=== PATIENT | female | born 1990 | race Caucasian/White ===

== ENCOUNTER 2018-12-30 16:31 | Observation (INO) ==
[2018-12-30] MEDS ORDERED: NIFEdipine 10 MG CAPSULE PO ONE (16:45)
[2018-12-30 16:53] VITALS: BP 124/76
--- NOTE | 2018-12-30 19:51 | HP ---
Chief Complaint - Chief Complaint Date of Service: 12/30/18 Time of Service: 19:34 Chief Complaint: contractions History of Present Illness: 28 yo at 31 weeks presents to L&D complaining contractions q1-3 min around 4-5/10 in pain since around 1000am today. They have persisted despite rest, fluid hydration, and warm bath. Patient denies vaginal bleeding, LOF, trauma, decreased FM, recent coitus, or excess activity. Patient states these feel similar to the ones she had the day before but are more painful. This complicated by ADHD, hyperemesis, GDM - diet controlled, prior c/s, pancreatic disorder, anxiety, h/o preeclampsia, chronic hematuria from renal dysfunction, and threatened labor. Rh positive Rubella immune GBS unknown Medical History (Updated 12/29/18 @ 16:58 by Wai Steele DO) History of pre-eclampsia (Inactive) Hyperemesis gravidarum with dehydration (Inactive) Attention deficit hyperactivity disorder (Chronic) Generalized anxiety disorder (Chronic) Gestational diabetes Onset Date: 12/07/18 Morning sickness ADD (attention deficit disorder) Onset Date: ~2014 Anxiety Onset Date: 04/19/14 Migraine aura, persistent Onset Date: 09/29/12 PCOS (polycystic ovarian syndrome) Onset Date: 09/29/12 Pancreatic divisum Acne Onset Date: Unknown Anemia Onset Date: ~2015 with Biliary tract disorder Onset Date: Unknown Heart murmur Onset Date: ~2014 Major depression (Resolved) Ovarian cyst Onset Date: ~2001 Pancreatic disorder Onset Date: ~2013 Pre-eclampsia Onset Date: 03/22/16 [place] teeth extracted Onset Date: ~2010 Surgical History: Surgical History (Updated 12/29/18 @ 16:58 by Wai Steele DO) Previous section (Inactive) Bleeding as complication of pancreatic-biliary sphincterotomy Onset Date: ~05/2017 H/O section Onset Date: 03/22/16 primary - breech position H/O laparoscopy Onset Date: ~2001 pod cleaned out - still has ovaries History of cholecystectomy Onset Date: 11/03/12 Hx of appendectomy Onset Date: ~2001 Family History: Family History (Updated 07/23/18 @ 13:27 by Frieda Calvillo RN) Father Hyperlipemia Grandfather , maternal Alzheimers disease Grandfather , paternal Myocardial infarction Grandmother CVA (cerebral vascular accident) maternal Diabetes Mother Hypertension Sister Asthma PCOS (polycystic ovarian syndrome) Uncle Diabetes type 1 Social History: (Last Reviewed 12/30/18 @ 19:38 by Wai Steele DO) Social History: Marital status: household members: spouse, children current occupational status: employed 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 Highest education level completed: Bachelor's degree Service: No Tobacco: Smoking Status: Never smoker Alcohol: alcohol intake: former alcohol intake frequency: a few times a month Substance Use: substance use type: does not use Dietary Habits: caffeine: Yes caffeine comment: 1-2 daily Type: carbonated beverages Exercise: Physical activity type: none Review Of Systems (GEN) - Review of Systems Generalized/Overall Review: Present: No Symptoms Reported EENTM: Present: No Symptoms Reported Respiratory: Present: No Symptoms Reported Cardiac: Present: No Symptoms Reported Abdominal: Present: Other - contractions Genitourinary: Present: No Symptoms Reported Musculoskeletal: Present: No Symptoms Reported Neurological: Present: No Symptoms Reported Skin: Present: No Symptoms Reported Endocrine: Present: No Symptoms Reported Immunizations: IMMUNIZATION HX Immunizations Up to Date Yes History of Influenza Vaccine Yes Hx Pneumococcal Vaccination No Allergies/Adverse Reactions: Allergies Allergy/AdvReac Type Severity Reaction Status Date / Time Sulfa (Sulfonamide Allergy Severe Hives Verified 12/28/18 16:30 Antibiotics) Home Medications: HOME MEDICATIONS rizatriptan 10 mg tablet 10 mg PO Q2H PRN 12/11/17 [Last Taken Unknown] lisdexamfetamine 40 mg capsule 40 mg PO DAILY #90 cap 09/10/18 [Last Taken Unknown] metoclopramide 10 mg tablet 10 mg PO Q6H #30 tab 09/22/18 [Last Taken Unknown] promethazine 25 mg rectal suppository 25 mg UT Q6H PRN #12 ea 09/22/18 [Last Taken Unknown] ondansetron 4 mg disintegrating tablet 4 mg PO Q8H #21 tab 10/07/18 [Last Taken Unknown] aspirin 81 mg tablet,delayed release 81 mg PO DAILY 10/27/18 [Last Taken 12/28/18] pyridoxine (vitamin B6) 25 mg tablet 25 mg PO DAILY 10/27/18 [Last Taken 12/28/18] ferrous sulfate 325 mg (65 mg iron) tablet 325 mg PO DAILY #30 tab 12/03/18 [Last Taken Unknown] acetone (urine) test strips See Dose Instructions .ROUTE .MEDSUPPLY #100 ea 12/07/18 [Last Taken Unknown] blood sugar diagnostic strips See Dose Instructions .ROUTE .MEDSUPPLY #100 ea 12/07/18 [Last Taken Unknown] blood-glucose meter kit See Dose Instructions .ROUTE .MEDSUPPLY #1 ea 12/07/18 [Last Taken Unknown] lancets 28 gauge See Dose Instructions .ROUTE .MEDSUPPLY #200 ea 12/07/18 [Last Taken Unknown] sertraline 100 mg tablet 150 mg PO DAILY #135 tab 12/21/18 [Last Taken 12/28/18] Cfq185/FA/Omega3/Dha/Fish Oil [ Gummies] 2 ea PO DAILY 12/28/18 [Last Taken 12/27/18] Exam - Exam Vital Signs: Vital Signs - Last Taken Temp 36.4 C 12/30/18 16:40 Pulse 91 12/30/18 16:53 Resp 18 12/30/18 16:40 BP 124/76 12/30/18 16:53 Pulse Ox 98 12/30/18 16:40 Constitutional: Present: Alert, Oriented x3, Cooperative, No distress ENT Exam: Present: hearing grossly normal Breasts: Present: Exam deferred Respiratory: Present: lungs clear, no respiratory distress Cardiovascular/Chest: Present: normal peripheral pulses, regular rate, rhythm, no edema Abdomen: Present: soft, nontender, no rebound tenderness, other - gravid /Rectal: Present: Other - cervix essentially unchanged from 12/29/18 - /-3. Extremity: Present: no pedal edema, no calf tenderness Skin Exam: Present: normal color, warm/dry, no cyanosis Lymphatic: Present: no adenopathy Neurologic: Present: alert, normal mood/affect, oriented x 3 Appearance: Present: appropriate appearance, appropriate insight Eye contact: Present: cooperative, good eye contact Thoughts: Present: normal thought pattern Diagnostic Studies: NST reactive. FHT 150 with moderate variability, occasional deceleration with some late appearing, good accelerations. Contractions q1-2 min, lasting 30 sec and palpate mild. Assessment/Plan - Assessment/Plan (1) Threatened labor Assessment: Due to a few questionable late decelerations, frequent contractions, and history of prior c/s, will keep patient overnight on monitor to reassure no developing abruption or uterine rupture. Will get T&S, CBC, keep NPO, and start IV fluids Problem: Acute Qualifiers: Trimester: third trimester (2) Pancreatic abnormality Problem: Chronic (3) Previous section Problem: Inactive (4) History of pre-eclampsia Problem: Inactive (5) Hyperemesis gravidarum with dehydration Problem: Inactive (6) Attention deficit hyperactivity disorder Problem: Chronic Qualifiers: Attention deficit-hyperactivity disorder type: predominantly inattentive (7) Generalized anxiety disorder Problem: Chronic
[2018-12-30] MEDS: DEXTROSE 5%-LACTATED RINGERS 1,000 ML IV PRN (20:02)
[2018-12-30 20:12] LABS: Hematocrit 29.4 % (37.0-47.0); Hemoglobin 10.2 gm/dL (12.5-16.0); Mean Cell Volume 86.5 fl (78-100); Mean Corpuscular Hgb Conc 34.7 g/dl (32-36); Mean Platelet Volume 9.6 fl (8-12.5); Neutrophil # 6.9 K/mm3 (1.3-6.0); Platelet Count 183 K/mm3 (150-450); Red Cell Distribution Width 12.6 % (11.5-14.0); White Blood Count 9.5 K/mm3 (4.0-10.5)
[2018-12-31] MEDS: DEXTROSE 5%-LACTATED RINGERS 1,000 ML IV PRN (03:19)
[2018-12-31] MEDS ORDERED: FERROUS SULFATE 325 MG TABLET PO SCH (09:00)
[2018-12-31] MEDS ORDERED: SERTRALINE HCL 100 MG TABLET PO SCH (09:00)
[2018-12-31] MEDS ORDERED: NON-FORMULARY 1 DOSE DOSE (Ferrous Sulfate [Iron] 325 MG) PO SCH (09:00)
[2018-12-31] MEDS ORDERED: [UNRECOGNIZED DRUG - OTHER] PO SCH (09:00)
[2018-12-31] MEDS ORDERED: ASPIRIN 81 MG TABLET.DR PO SCH (09:00)
[2018-12-31] MEDS ORDERED: [UNRECOGNIZED DRUG - OTHER] PO SCH (09:00)
[2018-12-31] MEDS ORDERED: DHA PO SCH ×2 (09:00)
[2018-12-31] MEDS ORDERED: SERTRALINE HCL 50 MG TABLET PO SCH (09:00)
[2018-12-31] MEDS ORDERED: OMEGA3 PO SCH ×2 (09:00)
[2018-12-31] MEDS ORDERED: FISH OIL PO SCH ×2 (09:00)
--- NOTE | 2018-12-31 10:12 | PN ---
Subjective - Date and Time Seen Date: 12/31/18 Time: 07:55 Subjective Narrative: Patient denies any pain, vaginal bleeding, LOF. C/o feeling an occasional contraction and only very mild. Objective - Review of Systems Generalized/Overall Review: Reports: No Symptoms Reported EENTM: Reports: No Symptoms Reported Respiratory: Reports: No Symptoms Reported Cardiac: Reports: No Symptoms Reported Abdominal: Reports: No Symptoms Reported Genitourinary Symptoms: Reports: No Symptoms Reported Musculoskeletal Complaints: Reports: No Symptoms Reported Neurological: Reports: No Symptoms Reported Skin: Reports: No Symptoms Reported - Vitals Vitals: Last Vital Signs Temp 36.4 C 12/30/18 16:40 Pulse 91 12/30/18 16:53 Resp 18 12/30/18 16:40 BP 124/76 12/30/18 16:53 Pulse Ox 98 12/30/18 16:40 - Abnormal Lab Findings Abnormal Lab Findings: Abnormal Lab Results 12/30/18 Range/Units 20:05 RBC 3.40 L (4.2-5.4) M/mm3 Hgb 10.2 L (12.5-16.0) gm/dL Hct 29.4 L (37.0-47.0) % Immature Gran % (Auto) 1.30 H (0.001-0.429) % Immature Gran # (Auto) 0.12 H (0.000-0.0310) K/mm3 Lymphocytes % 18.9 L (20-51) % Neutrophils # 6.9 H (1.3-6.0) K/mm3 NST reactive. tracing throughout the night has been reassuring with no further late decelerations and only an occasional mild variable deceleration. - Exam Constitutional: Present: Alert, Oriented x3, Cooperative, No distress ENT Exam: Present: hearing grossly normal Breasts: Present: Exam deferred Respiratory: Present: no respiratory distress Cardiovascular/Chest: Present: regular rate, rhythm, no edema Abdomen: Present: soft, nontender, no rebound tenderness, other - gravid /Rectal: Present: Exam deferred Extremity: Present: no pedal edema, no calf tenderness Skin Exam: Present: normal color, warm/dry, no cyanosis Neurologic: Present: alert, normal mood/affect, oriented x 3 Appearance: Present: appropriate appearance, appropriate insight Eye contact: Present: cooperative, good eye contact Thoughts: Present: normal thought pattern Assessment/Plan - Problems/Diagnosis (1) Threatened labor Problem: Resolved Qualifiers: Trimester: third trimester Narrative: D/c to home with PTL precautions, no sex or nipple stimulation till 36 wks. Avoid excess exercise/activity - ok to do normal ADL and light exercise. F/u in office in 1 week. (2) Pancreatic abnormality Problem: Chronic (3) Previous section Problem: Inactive (4) History of pre-eclampsia Problem: Inactive (5) Hyperemesis gravidarum with dehydration Problem: Inactive (6) Attention deficit hyperactivity disorder Problem: Chronic Qualifiers: Attention deficit-hyperactivity disorder type: predominantly inattentive (7) Generalized anxiety disorder Problem: Chronic
--- NOTE | 2018-12-31 10:20 | DS ---
(1) Threatened labor Problem: Resolved Qualifiers: Trimester: third trimester Qualified Code(s): O47.03 - False labor before 37 completed weeks of gestation, third trimester (2) Pancreatic abnormality Problem: Chronic (3) Previous section Problem: Inactive (4) History of pre-eclampsia Problem: Inactive (5) Hyperemesis gravidarum with dehydration Problem: Inactive (6) Attention deficit hyperactivity disorder Problem: Chronic Qualifiers: Attention deficit-hyperactivity disorder type: predominantly inattentive Qualified Code(s): F90.0 - Attention-deficit hyperactivity disorder, predominantly inattentive type (7) Generalized anxiety disorder Problem: Chronic Date of Discharge:: 12/31/18 Description of Stay: Patient admitted for observation due to 2nd occurrence of threatened labor within 2 days and a few late decelerations noted on tracing. Contractions resolved and no late decelerations were noted since admission. Procedures Performed: see notes below List Procedures: monitoring, NST, IV fluids, lab work. Results and Findings: Lab Pending Results 12/30/18 20:05: WBC 9.5, RBC 3.40 L, Hgb 10.2 L, Hct 29.4 L, MCV 86.5, MCH 30.0, MCHC 34.7, RDW 12.6, Plt Count 183, MPV 9.6, Immature Gran % (Auto) 1.30 H, Immature Gran # (Auto) 0.12 H, Neutrophils % 73.0, Lymphocytes % 18.9 L, Monocytes % 6.0, Eosinophils % 0.6, Basophils % 0.2, Nucleated RBC % 0.0, Neutrophils # 6.9 H, Lymphocytes # 1.79, Monocytes # 0.6, Eosinophils # 0.1, Absolute Basophils 0.0 12/30/18 20:05: Blood Type B Positive, Antibody Screen Negative Discharge Location: Home Disposition: Home self-care Condition: Good Face to Face Encounter completed per CMS Guidelines: Yes Discharge Activity: Activity as tolerated Discharge Diet: General/regular food Complete Home Medications List: Complete Home Medication List: rizatriptan 10 mg tablet 10 mg PO Q2H PRN 12/11/17 lisdexamfetamine 40 mg capsule 40 mg PO DAILY #90 cap 09/10/18 metoclopramide 10 mg tablet 10 mg PO Q6H #30 tab 09/22/18 promethazine 25 mg rectal suppository 25 mg RI Q6H PRN #12 ea 09/22/18 ondansetron 4 mg disintegrating tablet 4 mg PO Q8H #21 tab 10/07/18 aspirin 81 mg tablet,delayed release 81 mg PO DAILY 10/27/18 pyridoxine (vitamin B6) 25 mg tablet 25 mg PO DAILY 10/27/18 ferrous sulfate 325 mg (65 mg iron) tablet 325 mg PO DAILY #30 tab 12/03/18 acetone (urine) test strips See Dose Instructions .ROUTE .MEDSUPPLY #100 ea 12/07/18 blood sugar diagnostic strips See Dose Instructions .ROUTE .MEDSUPPLY #100 ea 12/07/18 blood-glucose meter kit See Dose Instructions .ROUTE .MEDSUPPLY #1 ea 12/07/18 lancets 28 gauge See Dose Instructions .ROUTE .MEDSUPPLY #200 ea 12/07/18 sertraline 100 mg tablet 150 mg PO DAILY #135 tab 12/21/18 Ckh574/FA/Omega3/Dha/Fish Oil [ Gummies] 2 ea PO DAILY 12/28/18
== END 2018-12-31 09:15 | disposition home or self-care (01) ==
LOC: OB 16:31 → OBCLINIC 16:31
PROVIDERS: ADMIT Obstetrics & Gynecology; ATTEND Obstetrics & Gynecology
CPT/HCPCS: 36415; 59025; 76816; 85025; 86850; 96360; 96361; G0378

== ENCOUNTER 2018-12-31 16:21 | Observation (INO) ==
[2018-12-31] MEDS ORDERED: BUTORPHANOL TARTRATE 2 MG/ML VIAL IV PRN ×2 (16:47→17:15)
[2018-12-31 17:01] LABS: Hematocrit 30.9 % (37.0-47.0); Hemoglobin 10.6 gm/dL (12.5-16.0); Mean Cell Volume 88.8 fl (78-100); Mean Corpuscular Hemoglobin 30.5 pg (27-31); Mean Corpuscular Hgb Conc 34.3 g/dl (32-36); Mean Platelet Volume 9.9 fl (8-12.5); Neutrophil # 5.6 K/mm3 (1.3-6.0); Neutrophil % 67.9 % (42-75.0); Platelet Count 196 K/mm3 (150-450); Red Blood Count 3.48 M/mm3 (4.2-5.4); Red Cell Distribution Width 12.8 % (11.5-14.0); White Blood Count 8.2 K/mm3 (4.0-10.5)
[2018-12-31 17:18] LABS: Albumin * 2.7 gm/dl (3.4-5.0); Anion Gap 15.3 mmol/L (6.8-13.8); BUN/Creatinine Ratio 10.6 (9.0-21.6); Bilirubin, Total 0.3 mg/dL (0.0-1.1); Ca. Corrected For Albumin 9.6 mg/dL (8.4-10.2); Calcium * 8.9 mg/dL (7.9-10.9); Carbon Dioxide 23.5 mmol/L (24-32.6); Potassium 3.8 mmol/L (3.4-4.6); Total Protein 5.6 gm/dL (6.2-8.2)
[2018-12-31 17:19] LABS: Urine Bilirubin Negative (NEGATIVE); Urine Blood 25 /ul (NEGATIVE); Urine Ketone Negative (NEGATIVE); Urine Nitrite Negative (NEGATIVE); Urine Protein Negative (NEGATIVE); Urine Specific Gravity 1.015 SP.GR. (1.005-1.010); Urine Urobilinogen Normal (NORMAL); Urine pH 7.5 pH (5.0-7.0)
[2018-12-31 17:28] LABS: Urine Appearance Cloudy (CLEAR); Urine Bacteria 1+; Urine Color Yellow; Urine RBC 0-5 /hpf (0-5)
[2018-12-31 17:29] LABS: Urine Amorphous Sediment Moderate - 2+ (NONE-FEW)
[2018-12-31] MEDS ORDERED: RINGER'S SOLUTION,LACTATED 1,000 ML IV ONE (17:34)
[2018-12-31] MEDS: HYDROmorphone HCL 1 MG/ML DISP.SYRIN IV PRN ×2 (17:45→22:20)
[2018-12-31] MEDS: ceFAZolin SODIUM/DEXTROSE,ISO 2 GM/50 ML BAG IV SCH (17:51)
[2018-12-31] MEDS ORDERED: MORPHINE SULFATE 4 MG/ML SYRG IV ONE (18:13)
[2018-12-31] MEDS: RINGER'S SOLUTION,LACTATED 1,000 ML IV ONE (18:35)
[2018-12-31] MEDS: MORPHINE SULFATE 2 MG/ML DISP.SYRIN IV PRN ×4 (20:15→22:51)
--- NOTE | 2018-12-31 20:42 | HP ---
Chief Complaint - Chief Complaint Date of Service: 12/31/18 Time of Service: 20:17 Chief Complaint: left flank pain History of Present Illness: The patient is a 28 year old @ 31w 1d who presented to labor and delivery with severe left flank pain. She denies ctx, vb or lof. Fetus is active. Medical History (Updated 12/31/18 @ 12:25 by Wai Steele DO) History of pre-eclampsia (Inactive) Hyperemesis gravidarum with dehydration (Inactive) Attention deficit hyperactivity disorder (Chronic) Generalized anxiety disorder (Chronic) Gestational diabetes Onset Date: 12/07/18 Morning sickness ADD (attention deficit disorder) Onset Date: ~2014 Anxiety Onset Date: 04/19/14 Migraine aura, persistent Onset Date: 09/29/12 PCOS (polycystic ovarian syndrome) Onset Date: 09/29/12 Pancreatic divisum Acne Onset Date: Unknown Anemia Onset Date: ~2015 with Biliary tract disorder Onset Date: Unknown Heart murmur Onset Date: ~2014 Major depression (Resolved) Ovarian cyst Onset Date: ~2001 Pancreatic disorder Onset Date: ~2013 Pre-eclampsia Onset Date: 03/22/16 [place] teeth extracted Onset Date: ~2010 Surgical History: Surgical History (Updated 12/29/18 @ 16:58 by Wai Steele DO) Previous section (Inactive) Bleeding as complication of pancreatic-biliary sphincterotomy Onset Date: ~05/2017 H/O section Onset Date: 03/22/16 primary - breech position H/O laparoscopy Onset Date: ~2001 pod cleaned out - still has ovaries History of cholecystectomy Onset Date: 11/03/12 Hx of appendectomy Onset Date: ~2001 Family History: Family History (Updated 07/23/18 @ 13:27 by Frieda Calvillo RN) Father Hyperlipemia Grandfather , maternal Alzheimers disease Grandfather , paternal Myocardial infarction Grandmother CVA (cerebral vascular accident) maternal Diabetes Mother Hypertension Sister Asthma PCOS (polycystic ovarian syndrome) Uncle Diabetes type 1 Social History: (Last Reviewed 12/31/18 @ 20:36 by May Whyte MD) Social History: Marital status: household members: spouse, children current occupational status: employed current occupation: [employer] Highest education level completed: Bachelor's degree Service: No Tobacco: Smoking Status: Never smoker Alcohol: alcohol intake: former alcohol intake frequency: a few times a month Substance Use: substance use type: does not use Dietary Habits: caffeine: Yes caffeine comment: 1-2 daily Type: carbonated beverages Exercise: Physical activity type: none Review Of Systems (GEN) - Review of Systems Generalized/Overall Review: Present: No Symptoms Reported Genitourinary: Present: Hematuria Musculoskeletal: Present: Back Pain Misc: All systems neg except as marked - left flank pain Immunizations: IMMUNIZATION HX Immunizations Up to Date Yes History of Influenza Vaccine Yes Hx Pneumococcal Vaccination No Allergies/Adverse Reactions: Allergies Allergy/AdvReac Type Severity Reaction Status Date / Time Sulfa (Sulfonamide Allergy Severe Hives Verified 12/28/18 16:30 Antibiotics) Home Medications: HOME MEDICATIONS rizatriptan 10 mg tablet 10 mg PO Q2H PRN 12/11/17 [Last Taken Unknown] lisdexamfetamine 40 mg capsule 40 mg PO DAILY #90 cap 09/10/18 [Last Taken Unknown] metoclopramide 10 mg tablet 10 mg PO Q6H #30 tab 09/22/18 [Last Taken Unknown] promethazine 25 mg rectal suppository 25 mg MA Q6H PRN #12 ea 09/22/18 [Last Taken Unknown] ondansetron 4 mg disintegrating tablet 4 mg PO Q8H #21 tab 10/07/18 [Last Taken Unknown] aspirin 81 mg tablet,delayed release 81 mg PO DAILY 10/27/18 [Last Taken 12/28/18] pyridoxine (vitamin B6) 25 mg tablet 25 mg PO DAILY 10/27/18 [Last Taken 12/28/18] ferrous sulfate 325 mg (65 mg iron) tablet 325 mg PO DAILY #30 tab 12/03/18 [Last Taken Unknown] acetone (urine) test strips See Dose Instructions .ROUTE .MEDSUPPLY #100 ea 12/07/18 [Last Taken Unknown] blood sugar diagnostic strips See Dose Instructions .ROUTE .MEDSUPPLY #100 ea 12/07/18 [Last Taken Unknown] blood-glucose meter kit See Dose Instructions .ROUTE .MEDSUPPLY #1 ea 12/07/18 [Last Taken Unknown] lancets 28 gauge See Dose Instructions .ROUTE .MEDSUPPLY #200 ea 12/07/18 [Last Taken Unknown] sertraline 100 mg tablet 150 mg PO DAILY #135 tab 12/21/18 [Last Taken 12/28/18] [id number]/FA/Omega3/Dha/Fish Oil [ Gummies] 2 ea PO DAILY 12/28/18 [Last Taken 12/27/18] Exam - Exam Constitutional: Present: Alert, Oriented x3, Cooperative, No distress Back Exam: Present: normal inspection, CVA tenderness (L) Respiratory: Present: lungs clear, normal breath sounds Cardiovascular/Chest: Present: regular rate, rhythm, no murmur Abdomen: Present: soft, nontender, nondistended Extremity: Present: non-tender, no calf tenderness Skin Exam: Present: normal color, warm/dry, no cyanosis Appearance: Present: appropriate appearance Eye contact: Present: cooperative Thoughts: Present: normal thought pattern Diagnostic Studies: Abnormal Lab Results 12/31/18 12/31/18 12/31/18 Range/Units 17:00 17:00 17:10 RBC 3.48 L (4.2-5.4) M/mm3 Hgb 10.6 L (12.5-16.0) gm/dL Hct 30.9 L (37.0-47.0) % Immature Gran % (Auto) 1.50 H (0.001-0.429) % Immature Gran # (Auto) 0.12 H (0.000-0.0310) K/mm3 Sodium 143 H (132-142) mmol/L Plasma Sodium 143 H (130-142) mmol/L Chloride 108 H (97-106) mmol/L Carbon Dioxide 23.5 L (24-32.6) mmol/L Anion Gap 15.3 H (6.8-13.8) mmol/L ALT 7 L (19-67) U/L Total Protein 5.6 L (6.2-8.2) gm/dL Albumin 2.7 L (3.4-5.0) gm/dl Urine Blood 25 H (NEGATIVE) /ul Ur Leukocyte Esterase 100 H (NEGATIVE) /ul Urine WBC 5-10 H (0-5) /hpf Ur Epithelial Cells 5-10 H (0-5) /hpf Amorphous Sediment Moderate - 2+ H (NONE-FEW) Urine Bacteria 1+ H (NONE) Urine Comment Culture ordered L Laboratory Results WBC 8.2 K/mm3 (4.0-10.5) 12/31/18 17:00 RBC 3.48 M/mm3 (4.2-5.4) L 12/31/18 17:00 Hgb 10.6 gm/dL (12.5-16.0) L 12/31/18 17:00 Hct 30.9 % (37.0-47.0) L 12/31/18 17:00 MCV 88.8 fl (78-100) 12/31/18 17:00 MCH 30.5 pg (27-31) 12/31/18 17:00 MCHC 34.3 g/dl (32-36) 12/31/18 17:00 RDW 12.8 % (11.5-14.0) 12/31/18 17:00 Plt Count 196 K/mm3 (150-450) 12/31/18 17:00 MPV 9.9 fl (8-12.5) 12/31/18 17:00 Immature Gran % (Auto) 1.50 % (0.001-0.429) H 12/31/18 17:00 Immature Gran # (Auto) 0.12 K/mm3 (0.000-0.0310) H 12/31/18 17:00 67.9 % (42-75.0) 12/31/18 17:00 21.5 % (20-51) 12/31/18 17:00 8.4 % (0.0-9) 12/31/18 17:00 0.5 % (0.0-3.0) 12/31/18 17:00 0.2 % (0.0-1.0) 12/31/18 17:00 Nucleated RBC % 0.0 k/mm3 (0-1) 12/31/18 17:00 5.6 K/mm3 (1.3-6.0) 12/31/18 17:00 1.77 k/mm3 (1.5-3.5) 12/31/18 17:00 0.7 k/mm3 (0.0-1.0) 12/31/18 17:00 0.0 k/mm3 (0.0-0.7) 12/31/18 17:00 Absolute Basophils 0.0 k/mm3 (0.0-0.1) 12/31/18 17:00 Sodium 143 mmol/L (132-142) H 12/31/18 17:00 143 mmol/L (130-142) H 12/31/18 17:00 Potassium 3.8 mmol/L (3.4-4.6) 12/31/18 17:00 Chloride 108 mmol/L (97-106) H 12/31/18 17:00 Carbon Dioxide 23.5 mmol/L (24-32.6) L 12/31/18 17:00 15.3 mmol/L (6.8-13.8) H 12/31/18 17:00 BUN 7 mg/dL (3-23) 12/31/18 17:00 0.66 mg/dL (0.4-1.4) 12/31/18 17:00 Est GFR (Non-Af Amer) 112 mL/min (60-130) 12/31/18 17:00 10.6 (9.0-21.6) 12/31/18 17:00 95 mg/dL (70-110) 12/31/18 17:00 Calcium 8.9 mg/dL (7.9-10.9) 12/31/18 17:00 Calcium Adj for Albumin 9.6 mg/dL (8.4-10.2) 12/31/18 17:00 0.3 mg/dL (0.0-1.1) 12/31/18 17:00 AST 18 U/L (0-48) 12/31/18 17:00 ALT 7 U/L (19-67) L 12/31/18 17:00 83 U/L (50-170) 12/31/18 17:00 5.6 gm/dL (6.2-8.2) L 12/31/18 17:00 2.7 gm/dl (3.4-5.0) L 12/31/18 17:00 Amylase 47 U/L (25-115) 12/31/18 17:00 147 U/L (73-393) 12/31/18 17:00 Yellow 12/31/18 17:10 Cloudy (CLEAR) 12/31/18 17:10 7.5 pH (5.0-7.0) 12/31/18 17:10 Ur Specific [place] 1.015 SP.GR. (1.005-1.010) 12/31/18 17:10 Negative mg/dL (NEGATIVE) 12/31/18 17:10 Negative mg/dL (NEGATIVE) 12/31/18 17:10 Negative mg/dL (NEGATIVE) 12/31/18 17:10 25 /ul (NEGATIVE) H 12/31/18 17:10 Negative (NEGATIVE) 12/31/18 17:10 Negative mg/dl (NEGATIVE) 12/31/18 17:10 Normal EU/dl (NORMAL) 12/31/18 17:10 Ur Leukocyte Esterase 100 /ul (NEGATIVE) H 12/31/18 17:10 0-5 /hpf (0-5) 12/31/18 17:10 5-10 /hpf (0-5) H 12/31/18 17:10 Ur Epithelial Cells 5-10 /hpf (0-5) H 12/31/18 17:10 Amorphous Sediment Moderate - 2+ (NONE-FEW) H 12/31/18 17:10 1+ (NONE) H 12/31/18 17:10 Urine Comment Culture ordered L 12/31/18 17:10 Assessment/Plan - Narrative Narrative: 28 year old @ 31w 1d 1. Left ureteral stone: pain control overnight, continue Ancef overnight, discussed with Dr. Sahni who will speak to Dr. Jesus and one of them will place a ureteral stent tomorrow. Patient NPO after midnight. Patient may have dinner 2. IUP @ 31w 1d: cat 1 tracing. Stop monitoring given non-obstetrical problem Plan of care discussed with the patient and her spouse
[2019-01-01] MEDS: HYDROmorphone HCL 1 MG/ML DISP.SYRIN IV PRN ×4 (01:00→07:15)
[2019-01-01] MEDS: MORPHINE SULFATE 2 MG/ML DISP.SYRIN IV PRN ×7 (01:15→08:02)
[2019-01-01] MEDS: RINGER'S SOLUTION,LACTATED 1,000 ML IV ONE (01:18)
[2019-01-01] MEDS: ceFAZolin SODIUM/DEXTROSE,ISO 2 GM/50 ML BAG IV SCH ×3 (01:41→18:02)
[2019-01-01] MEDS ORDERED: MORPHINE SULFATE 50 MG CARTRIDGE IV PRN (07:36)
[2019-01-01] MEDS ORDERED: diphenhydrAMINE HCL 50 MG/ML VIAL IV PRN (07:36)
[2019-01-01] MEDS ORDERED: NALOXONE HCL 1 MG/1 ML SYRG IV PRN (07:36)
--- NOTE | 2019-01-01 07:40 | PN ---
Subjective - Date and Time Seen Date: 01/01/19 Time: 07:37 Subjective Narrative: Patient without complaints Objective Objective Narrative: See vital signs - Review of Systems Generalized/Overall Review: Reports: No Symptoms Reported Musculoskeletal Complaints: Reports: Back Pain Misc: All systems neg except as marked - Vitals Vitals: Last Vital Signs Temp 36.4 C 01/01/19 07:21 Pulse 84 01/01/19 07:21 Resp 14 01/01/19 07:21 BP 98/56 01/01/19 07:21 Pulse Ox 99 01/01/19 07:21 - Abnormal Lab Findings Abnormal Lab Findings: Abnormal Lab Results 12/31/18 12/31/18 12/31/18 Range/Units 17:00 17:00 17:10 RBC 3.48 L (4.2-5.4) M/mm3 Hgb 10.6 L (12.5-16.0) gm/dL Hct 30.9 L (37.0-47.0) % Immature Gran % (Auto) 1.50 H (0.001-0.429) % Immature Gran # (Auto) 0.12 H (0.000-0.0310) K/mm3 Sodium 143 H (132-142) mmol/L Plasma Sodium 143 H (130-142) mmol/L Chloride 108 H (97-106) mmol/L Carbon Dioxide 23.5 L (24-32.6) mmol/L Anion Gap 15.3 H (6.8-13.8) mmol/L ALT 7 L (19-67) U/L Total Protein 5.6 L (6.2-8.2) gm/dL Albumin 2.7 L (3.4-5.0) gm/dl Urine Blood 25 H (NEGATIVE) /ul Ur Leukocyte Esterase 100 H (NEGATIVE) /ul Urine WBC 5-10 H (0-5) /hpf Ur Epithelial Cells 5-10 H (0-5) /hpf Amorphous Sediment Moderate - 2+ H (NONE-FEW) Urine Bacteria 1+ H (NONE) Urine Comment Culture ordered L - Exam Constitutional: Present: Alert, Oriented x3, Cooperative, No distress Abdomen: Present: soft, nontender, nondistended Extremity: Present: non-tender, no calf tenderness Skin Exam: Present: normal color, warm/dry, no cyanosis Appearance: Present: appropriate appearance Eye contact: Present: cooperative Thoughts: Present: normal thought pattern Assessment/Plan Plan Narrative: 28 yo @ 31w 2d Awaiting urological consult for ureteral calculus Morphine RN MANAGED CARE for pain control
[2019-01-01] MEDS: RINGER'S SOLUTION,LACTATED 1,000 ML IV PRN ×2 (08:00→14:40)
[2019-01-01] MEDS ORDERED: NORMAL SALINE IV PRN ×2 (08:18→08:30)
[2019-01-01] MEDS ORDERED: MORPHINE SULFATE IV PRN ×2 (08:18→08:30)
[2019-01-01] MEDS ORDERED: TAMSULOSIN HCL 0.4 MG CAP.SR.24H PO ONE (12:06)
--- NOTE | 2019-01-01 13:09 | ANES ---
Anesthesia Pre Procedure Eval Vitals/Labs: Last Vital Signs Temp 36.4 C 01/01/19 07:21 Pulse 84 01/01/19 07:21 Resp 14 01/01/19 07:21 BP 98/56 01/01/19 07:21 Pulse Ox 99 01/01/19 07:21 HOME MEDICATIONS rizatriptan 10 mg tablet 10 mg PO Q2H PRN 12/11/17 [Last Taken Unknown] lisdexamfetamine 40 mg capsule 40 mg PO DAILY #90 cap 09/10/18 [Last Taken Unknown] metoclopramide 10 mg tablet 10 mg PO Q6H #30 tab 09/22/18 [Last Taken Unknown] promethazine 25 mg rectal suppository 25 mg HI Q6H PRN #12 ea 09/22/18 [Last Taken Unknown] ondansetron 4 mg disintegrating tablet 4 mg PO Q8H #21 tab 10/07/18 [Last Taken Unknown] aspirin 81 mg tablet,delayed release 81 mg PO DAILY 10/27/18 [Last Taken 12/28/18] pyridoxine (vitamin B6) 25 mg tablet 25 mg PO DAILY 10/27/18 [Last Taken 12/28/18] ferrous sulfate 325 mg (65 mg iron) tablet 325 mg PO DAILY #30 tab 12/03/18 [Last Taken Unknown] acetone (urine) test strips See Dose Instructions .ROUTE .MEDSUPPLY #100 ea 12/07/18 [Last Taken Unknown] blood sugar diagnostic strips See Dose Instructions .ROUTE .MEDSUPPLY #100 ea 12/07/18 [Last Taken Unknown] blood-glucose meter kit See Dose Instructions .ROUTE .MEDSUPPLY #1 ea 12/07/18 [Last Taken Unknown] lancets 28 gauge See Dose Instructions .ROUTE .MEDSUPPLY #200 ea 12/07/18 [Last Taken Unknown] sertraline 100 mg tablet 150 mg PO DAILY #135 tab 12/21/18 [Last Taken 12/28/18] [id number]/FA/Omega3/Dha/Fish Oil [ Gummies] 2 ea PO DAILY 12/28/18 [Last Taken 12/27/18] Allergies/Adverse Reactions: Allergies Allergy/AdvReac Type Severity Reaction Status Date / Time Sulfa (Sulfonamide Allergy Severe Hives Verified 12/31/18 22:27 Antibiotics) - Planned Procedure Planned Procedure: kidney stone Medication List Reviewed:: Yes Allergies Verified: Yes Medical History (Updated 12/31/18 @ 12:25 by Wai Steele DO) History of pre-eclampsia (Inactive) Hyperemesis gravidarum with dehydration (Inactive) Attention deficit hyperactivity disorder (Chronic) Generalized anxiety disorder (Chronic) Gestational diabetes Onset Date: 12/07/18 Morning sickness ADD (attention deficit disorder) Onset Date: ~2014 Anxiety Onset Date: 04/19/14 Migraine aura, persistent Onset Date: 09/29/12 PCOS (polycystic ovarian syndrome) Onset Date: 09/29/12 Pancreatic divisum Acne Onset Date: Unknown Anemia Onset Date: ~2015 with Biliary tract disorder Onset Date: Unknown Heart murmur Onset Date: ~2014 Major depression (Resolved) Ovarian cyst Onset Date: ~2001 Pancreatic disorder Onset Date: ~2013 Pre-eclampsia Onset Date: 03/22/16 [place] teeth extracted Onset Date: ~2010 Surgical History (Updated 12/29/18 @ 16:58 by Wai Steele DO) Previous section (Inactive) Bleeding as complication of pancreatic-biliary sphincterotomy Onset Date: ~05/2017 H/O section Onset Date: 03/22/16 primary - breech position H/O laparoscopy Onset Date: ~2001 pod cleaned out - still has ovaries History of cholecystectomy Onset Date: 11/03/12 Hx of appendectomy Onset Date: ~2001 Family History (Updated 07/23/18 @ 13:27 by Frieda Calvillo RN) Father Hyperlipemia Grandfather , maternal Alzheimers disease Grandfather , paternal Myocardial infarction Grandmother CVA (cerebral vascular accident) maternal Diabetes Mother Hypertension Sister Asthma PCOS (polycystic ovarian syndrome) Uncle Diabetes type 1 - Family Anesthesia History Family History:: no untoward family reactions to anesthesia, no familial bleeding tendencies, no family history of clotting disorders, no family history of premature - Airway/Neck/Teeth Within Normal Limits:: Yes Teeth Condition: intact Neck Exam: full range of motion Mallampatti Score: 1 Thyromental (T-M) distance: > 6 cm Mandibulo Hyoid distance: > 3 cm - Respiratory Respiratory Physical: lungs clear Smoking Status: Never smoker Sleep Apnea currently treated: No Sleep Apnea by current assessment: No - Cardiovascular Tolerate Activity: Good Heart Sounds: S1 & S2, Regular - Anesthesia Assessment and Plan ASA Class: PS, II, E Anesthesia Type Plan: General ET
--- NOTE | 2019-01-01 13:37 | CONS ---
[facility] - General Date of Service: 01/01/19 Narrative: 28-year-old female admitted yesterday for left abdominal and flank pain. She is currently 31 weeks . This is her second child. Earlier this week she began having some contractions but overall the baby was doing well. However yesterday she developed severe left abdominal pain radiating to her left flank. Also has had some nausea. A renal ultrasound was done and I reviewed the report and images. She has bilateral pelviectasis. There is reported possible calcifications in both kidneys. A right ureteral jet was seen. However no left ureteral jet was identified. Her urine contained a few white cells but also squamous cells. White blood cell count was normal. She has not had any fevers. I reviewed his CT scan she had done in [facility] in 2017. She had multiple bilateral stones at that time. In the left kidney she had a 5 mm and a 4 mm stone. Her pain has been pretty severe overnight requiring a VP. It is a little bit better currently. Her urine has been strained and no stone seen. Family hx: no hx of stones reported Social hx: nonsmoker - History of Present Illness Timing/Duration: 24 hours Severity: severe Modifying Factors - (Worsens): Reports: medication Allergies/Adverse Reactions: Allergies Sulfa (Sulfonamide Antibiotics) Allergy (Severe, Verified 12/31/18 22:27) Hives Home Medications: Home Medications Medication Instructions Recorded Last Taken rizatriptan 10 mg tablet 10 mg PO Q2H PRN 12/11/17 Unknown lisdexamfetamine 40 mg capsule 40 mg PO DAILY #90 cap 09/10/18 Unknown metoclopramide 10 mg tablet 10 mg PO Q6H #30 tab 09/22/18 Unknown promethazine 25 mg rectal 25 mg SD Q6H PRN #12 ea 09/22/18 Unknown suppository ondansetron 4 mg disintegrating 4 mg PO Q8H #21 tab 10/07/18 Unknown tablet aspirin 81 mg tablet,delayed 81 mg PO DAILY 10/27/18 12/28/18 release pyridoxine (vitamin B6) 25 mg 25 mg PO DAILY 10/27/18 12/28/18 tablet ferrous sulfate 325 mg (65 mg 325 mg PO DAILY #30 tab 12/03/18 Unknown iron) tablet acetone (urine) test strips See Dose Instructions .ROUTE 12/07/18 Unknown .MEDSUPPLY #100 ea blood sugar diagnostic strips See Dose Instructions .ROUTE 12/07/18 Unknown .MEDSUPPLY #100 ea blood-glucose meter kit See Dose Instructions .ROUTE 12/07/18 Unknown .MEDSUPPLY #1 ea lancets 28 gauge See Dose Instructions .ROUTE 12/07/18 Unknown .MEDSUPPLY #200 ea sertraline 100 mg tablet 150 mg PO DAILY #135 tab 12/21/18 12/28/18 Yqu116/FA/Omega3/Dha/Fish Oil 2 ea PO DAILY 12/28/18 12/27/18 [ Gummies] Procedures Extraction of Products of Conception, Low Cervical, Open Approach (03/22/16) Immobilization of Right Hand using Splint (02/03/15) Monitoring of Products of Conception, Cardiac Rate, External Approach (03/22/16) Medications - Medications Current Medications: Current Medications Butorphanol Tartrate (Stadol) 2 mg IV ONCE PRN PRN Reason: Pain Stop: 01/30/19 16:48 Last Admin: 12/31/18 17:06 Dose: 2 mg Documented by: Cefazolin Sodium/Dextrose (Ancef) 2 gm in 50 mls @ 100 mls/hr IV Q8H [facility]; Protocol Stop: 01/30/19 17:46 Last Infusion: 01/01/19 10:45 Dose: Infused Documented by: Lactated Ringer's (Lactated Ringers) 1,000 mls @ 150 mls/hr IV .Q6H40M PRN PRN Reason: HYDRATION Stop: 01/31/19 03:09 Last Admin: 01/01/19 08:00 Dose: 150 mls/hr Documented by: Morphine Sulfate 50 mg/ Sodium (Chloride) 50 mls @ 0 mls/hr IV PRN PRN; Protocol PRN Reason: SEVERE PAIN Stop: 01/31/19 08:25 Last Admin: 01/01/19 09:00 Dose: 0.1 mls/hr Documented by: Review of Systems - Review of Systems Generalized/Overall Review: Present: No Symptoms Reported EENTM: Present: No Symptoms Reported Respiratory: Present: No Symptoms Reported Cardiac: Present: No Symptoms Reported Abdominal: Present: Nausea Genitourinary: Present: No Symptoms Reported Musculoskeletal: Present: Back Pain Neurological: Present: No Symptoms Reported Skin: Present: No Symptoms Reported Endocrine: Present: No Symptoms Reported Physical Examination - Exam Vital Signs: Vital Signs - Last Taken Temp 97.5 F 01/01/19 07:21 Pulse 84 01/01/19 07:21 Resp 14 01/01/19 07:21 BP 98/56 01/01/19 07:21 Pulse Ox 99 01/01/19 07:21 O2 Oxygen Delivery Method Room Air Constitutional: Present: Alert, Oriented x3 ENT Exam: Present: hearing grossly normal Respiratory: Present: lungs clear, normal breath sounds Cardiovascular/Chest: Present: normal peripheral pulses Abdomen: Present: soft, nontender, other /Rectal: Present: External genitalia normal Extremity: Present: normal range of motion Skin Exam: Present: normal color, warm/dry Appearance: Present: appropriate appearance Eye contact: Present: cooperative, good eye contact Thoughts: Present: normal thought pattern - Results and Findings: Narrative: Patient likely has an obstructing left ureteral stone. Based on past CT scan she had pretty sizable stones previously. I discussed options of continued trial of passage versus placing a left ureteral stent. Patient has had such severe pain she wants to place a stent. I think that this is reasonable given the size of stones previously seen on CT scan. We do not know the current location or size of the stones but the only way to assess that would be to do a CT scan. We would rather try to avoid a CT scan if at all possible due to the radiation. After discussion patient wishes to proceed with cystoscopy and stent placement in the left kidney. My plan will be to leave the stent in for 2 weeks and then go back in and treat any stone visible with ureteroscopy and laser lithotripsy. Patient understands that there is a risk for miscarriage, infection and injury to the ureter. However there is risks to the baby if continued pain medication. Plus she has been miserable over the last 24 hours. She wishes to proceed Lab/Microbiology results last 24 hrs: Abnormal/Pending Laboratory Last 24 HRS 12/31/18 12/31/18 12/31/18 17:10 17:00 17:00 RBC 3.48 L Hgb 10.6 L Hct 30.9 L Immature Gran % (Auto) 1.50 H Immature Gran # (Auto) 0.12 H Sodium 143 H Plasma Sodium 143 H Chloride 108 H Carbon Dioxide 23.5 L Anion Gap 15.3 H ALT 7 L Total Protein 5.6 L Albumin 2.7 L Urine Blood 25 H Ur Leukocyte Esterase 100 H Urine WBC 5-10 H Ur Epithelial Cells 5-10 H Amorphous Sediment Moderate - 2+ H Urine Bacteria 1+ H Urine Comment Culture ordered L Culture 12/31/18 17:10 Urine Culture - Preliminary Urine,Clean Catch No Growth
--- NOTE | 2019-01-01 15:10 | OR ---
Operative Report - Dictated Report Narrative: Procedure performed: Cystoscopy with left ureteral stent insertion Preop diagnosis: Left hydronephrosis Postop: Same, likely left ureteral stone Anesthesia: Spinal Findings: She appeared to have left ureteral obstruction about midway up the ureter based on feel Specimen: Urine culture Description of the procedure: Patient was properly identified and consented. She was brought to the operating room and spinal anesthesia induced. Prepped and draped in the dorsolithotomy position. Timeout was performed. Rigid cystoscope was passed into the bladder. Bladder without stones or lesions. No significant debris. She had single ureters bilaterally. Using a 5 [place] c atheter and a Solo wire I cannulated the left ureter. Fluoroscopy was not working and thus I performed a stent by feel. About midway up the ureter there was some obstruction felt. With gentle pressure I was able to navigate the wire but I feel past this obstruction. It seemed to pass smoothly once he got by this point. A 5 [place] catheter was removed leaving the wire in place. Over the wire a 6 x 24 double-J stent was easily advanced. The wire was removed. I visualize a coil within the bladder. There was what appeared to be slightly cloudy urine draining out of the stent. Washing for the bladder was obtained directed at the end of the stent. The bladder was drained. Patient tolerated well
[2019-01-01] MEDS ORDERED: HYDROcodone/ACETAMINOPHEN 1 EACH TABLET PO PRN (15:25)
--- NOTE | 2019-01-01 15:34 | ANES ---
Post Anesthesia Assessment - Vital Signs Vitals: Last Vital Signs Temp 36.8 C 01/01/19 15:30 Pulse 96 01/01/19 15:30 Resp 16 01/01/19 15:30 BP 108/63 01/01/19 15:30 Pulse Ox 100 01/01/19 15:30 Airway Patency: Normal - Mental Status Level Of Consciousness: Awake - Pain Level Pain Score: 0 - N/V Assessment Nausea/Vomiting Presence: None Dehydration:: No
--- NOTE | 2019-01-01 15:34 | ANES ---
Post Anesthesia Discharge - Transfer of Care Transfer of Care handoff given to nurse: Yes - Discharge from PACU Discharge from PACU when meets criteria: Yes
[2019-01-01 17:36] VITALS: BP 103/56
--- NOTE | 2019-01-01 17:53 | DS ---
(1) Renal and ureteric calculus Problem: Acute Date of Discharge:: 01/01/19 Description of Stay: The patient was admitted last night with left flank pain. Ultrasound showed bilateral renal calculi as well as a left ureteral calculus. The patient underwent cystoscopy with stent placement by Urology. Her pain medication was discontinued. I started oral pain medication and the patient has not taken any. Will discharge home on oral pain medication should the patient need it. Procedures Performed: see notes below List Procedures: See procedure note from Dr. Jesus Results and Findings: Pending Mircobiology Results 12/31/18 17:10 Urine,Clean Catch Urine Culture - Preliminary No Growth Lab Pending Results 12/31/18 17:00: WBC 8.2, RBC 3.48 L, Hgb 10.6 L, Hct 30.9 L, MCV 88.8, MCH 30.5, MCHC 34.3, RDW 12.8, Plt Count 196, MPV 9.9, Immature Gran % (Auto) 1.50 H, Immature Gran # (Auto) 0.12 H, Neutrophils % 67.9, Lymphocytes % 21.5, Monocytes % 8.4, Eosinophils % 0.5, Basophils % 0.2, Nucleated RBC % 0.0, Neutrophils # 5.6, Lymphocytes # 1.77, Monocytes # 0.7, Eosinophils # 0.0, Absolute Basophils 0.0 12/31/18 17:00: Sodium 143 H, Plasma Sodium 143 H, Potassium 3.8, Chloride 108 H, Carbon Dioxide 23.5 L, Anion Gap 15.3 H, BUN 7, Creatinine 0.66, Est GFR (Non-Af Amer) 112, BUN/Creatinine Ratio 10.6, Random Glucose 95, Calcium 8.9, Calcium Adj for Albumin 9.6, Total Bilirubin 0.3, AST 18, ALT 7 L, Alkaline Phosphatase 83, Total Protein 5.6 L, Albumin 2.7 L, Amylase 47, Lipase 147 12/31/18 17:10: Urine Color Yellow, Urine Appearance Cloudy, Urine pH 7.5, Ur Specific [place] 1.015, Urine Protein Negative, Urine Glucose (UA) Negative, Urine Ketones Negative, Urine Blood 25 H, Urine Nitrate Negative, Urine Bilirubin Negative, Urine Urobilinogen Normal, Ur Leukocyte Esterase 100 H, Urine RBC 0-5, Urine WBC 5-10 H, Ur Epithelial Cells 5-10 H, Amorphous Sediment Moderate - 2+ H, Urine Bacteria 1+ H, Urine Comment Culture ordered L Discharge Location: Home Disposition: Home self-care Condition: Good Discharge Activity: Activity as tolerated Discharge Diet: General/regular food Referrals: Lu Lewis MD [Primary Care Provider] - Complete Home Medications List: Complete Home Medication List: rizatriptan 10 mg tablet 10 mg PO Q2H PRN 12/11/17 lisdexamfetamine 40 mg capsule 40 mg PO DAILY #90 cap 09/10/18 metoclopramide 10 mg tablet 10 mg PO Q6H #30 tab 09/22/18 promethazine 25 mg rectal suppository 25 mg CO Q6H PRN #12 ea 09/22/18 ondansetron 4 mg disintegrating tablet 4 mg PO Q8H #21 tab 10/07/18 aspirin 81 mg tablet,delayed release 81 mg PO DAILY 10/27/18 pyridoxine (vitamin B6) 25 mg tablet 25 mg PO DAILY 10/27/18 ferrous sulfate 325 mg (65 mg iron) tablet 325 mg PO DAILY #30 tab 12/03/18 acetone (urine) test strips See Dose Instructions .ROUTE .MEDSUPPLY #100 ea 12/07/18 blood sugar diagnostic strips See Dose Instructions .ROUTE .MEDSUPPLY #100 ea blood-glucose meter kit See Dose Instructions .ROUTE .MEDSUPPLY #1 ea 12/07/18 lancets 28 gauge See Dose Instructions .ROUTE .MEDSUPPLY #200 ea 12/07/18 sertraline 100 mg tablet 150 mg PO DAILY #135 tab 12/21/18 [id number]/FA/Omega3/Dha/Fish Oil [ Gummies] 2 ea PO DAILY 12/28/18 hydrocodone 5 mg-acetaminophen 325 mg tablet 1 tab PO Q6H PRN #10 tab 01/01/19
== END 2019-01-01 19:38 | disposition home or self-care (01) ==
LOC: OB 16:21 → OBCLINIC 16:21 → MS 01-01 15:10
PROVIDERS: ADMIT Obstetrics & Gynecology; ATTEND Obstetrics & Gynecology
DX: O47.03 False labor before 37 completed weeks of gestation, third trimester; F41.9 Anxiety disorder, unspecified; O21.1 Hyperemesis gravidarum with metabolic disturbance; Z36.9 Encounter for antenatal screening, unspecified; N20.2 Calculus of kidney with calculus of ureter; F90.0 Attention-deficit hyperactivity disorder, predominantly inattentive type; Z3A.31 31 weeks gestation of pregnancy
CPT/HCPCS: 36415; 59025; 76770; 76816; 80053; 81001; 82150; 83690; 85025; 87086; 96361; C1769; C2617; G0378

== ENCOUNTER 2019-02-02 18:11 | Observation (INO) ==
[2019-02-02 19:18] VITALS: BP 133/79
[2019-02-02] MEDS ORDERED: RINGER'S SOLUTION,LACTATED 1,000 ML IV PRN (19:30)
--- NOTE | 2019-02-02 19:44 | HP ---
Chief Complaint - Chief Complaint Date of Service: 02/02/19 Time of Service: 19:22 Chief Complaint: Contractions History of Present Illness: 28 yo at 35 6/7 weeks presents to L&D complaining of contractions of increasing frequency and intensity. She has been yassine frequently for several days and was seen this past weekend at [facility] for threatened PTL. She did not make cervical change and was sent home. Since then she has continued to contract and they have been very uncomfortable since this afternoon. She received betamethasone on 01/28 and 01/29. This complicated by hyperemesis in 1st and 2nd trimester, ADHD, anx iety d/o, PTL, kidney stones, pancreatic dysfunction, prior c/s, and h/o preeclampsia. Rh positive Rubella immune GBS negative on 01/28/19. Medical History (Updated 01/05/19 @ 11:40 by Devante Barrett RN) History of pre-eclampsia (Inactive) Hyperemesis gravidarum with dehydration (Inactive) Attention deficit hyperactivity disorder (Chronic) Generalized anxiety disorder (Chronic) Gestational diabetes Onset Date: 12/07/18 Kidney stone on left side Onset Date: 12/31/18 Morning sickness ADD (attention deficit disorder) Onset Date: ~2014 Anxiety Onset Date: 04/19/14 Migraine aura, persistent Onset Date: 09/29/12 PCOS (polycystic ovarian syndrome) Onset Date: 09/29/12 Pancreatic divisum Acne Onset Date: Unknown Anemia Onset Date: ~2015 with Biliary tract disorder Onset Date: Unknown Heart murmur Onset Date: ~2014 Major depression (Resolved) Ovarian cyst Onset Date: ~2001 Pancreatic disorder Onset Date: ~2013 Pre-eclampsia Onset Date: 03/22/16 [place] teeth extracted Onset Date: ~2010 Surgical History: Surgical History (Updated 01/05/19 @ 11:40 by Devante Barrett RN) Previous section (Inactive) S/P ureteral stent placement Onset Date: 01/01/19 left Bleeding as complication of pancreatic-biliary sphincterotomy Onset Date: ~05/2017 H/O section Onset Date: 03/22/16 primary - breech position H/O laparoscopy Onset Date: ~2001 pod cleaned out - still has ovaries History of cholecystectomy Onset Date: 11/03/12 Hx of appendectomy Onset Date: ~2001 Family History: Family History (Updated 07/23/18 @ 13:27 by Frieda Calvillo RN) Father Hyperlipemia Grandfather , maternal Alzheimers disease Grandfather , paternal Myocardial infarction Grandmother CVA (cerebral vascular accident) maternal Diabetes Mother Hypertension Sister Asthma PCOS (polycystic ovarian syndrome) Uncle Diabetes type 1 Social History: (Last Reviewed 02/02/19 @ 19:30 by Wai Steele DO) Social History: Marital status: household members: spouse, children current occupational status: employed current occupation: [employer] Highest education level completed: Bachelor's degree Service: No Tobacco: Smoking Status: Never smoker Alcohol: alcohol intake: former alcohol intake frequency: a few times a month Substance Use: substance use type: does not use Dietary Habits: caffeine: Yes caffeine comment: 1-2 daily Type: carbonated beverages Exercise: Physical activity type: none Review Of Systems (GEN) - Review of Systems Generalized/Overall Review: Present: No Symptoms Reported EENTM: Present: No Symptoms Reported Respiratory: Present: No Symptoms Reported Cardiac: Present: No Symptoms Reported Abdominal: Present: Other - contractions Genitourinary: Present: No Symptoms Reported Musculoskeletal: Present: No Symptoms Reported Neurological: Present: No Symptoms Reported Skin: Present: No Symptoms Reported Endocrine: Present: No Symptoms Reported Immunizations: IMMUNIZATION HX Immunizations Up to Date Yes History of Influenza Vaccine Yes Hx Pneumococcal Vaccination No Allergies/Adverse Reactions: Allergies Allergy/AdvReac Type Severity Reaction Status Date / Time Sulfa (Sulfonamide Allergy Severe Hives Verified 02/02/19 18:39 Antibiotics) Home Medications: HOME MEDICATIONS rizatriptan 10 mg tablet 10 mg PO Q2H PRN 12/11/17 [Last Taken Unknown] lisdexamfetamine 40 mg capsule 40 mg PO DAILY #90 cap 09/10/18 [Last Taken Unknown] metoclopramide 10 mg tablet 10 mg PO Q6H #30 tab 09/22/18 [Last Taken Unknown] aspirin 81 mg tablet,delayed release 81 mg PO DAILY 10/27/18 [Last Taken 02/02/19] pyridoxine (vitamin B6) 25 mg tablet 25 mg PO DAILY 10/27/18 [Last Taken 12/28/18] ferrous sulfate 325 mg (65 mg iron) tablet 325 mg PO DAILY #30 tab 12/03/18 [Last Taken Unknown] acetone (urine) test strips See Dose Instructions .ROUTE .MEDSUPPLY #100 ea 12/07/18 [Last Taken Unknown] blood sugar diagnostic strips See Dose Instructions .ROUTE .MEDSUPPLY #100 ea 12/07/18 [Last Taken Unknown] blood-glucose meter kit See Dose Instructions .ROUTE .MEDSUPPLY #1 ea 12/07/18 [Last Taken Unknown] lancets 28 gauge See Dose Instructions .ROUTE .MEDSUPPLY #200 ea 12/07/18 [Last Taken Unknown] sertraline 100 mg tablet 150 mg PO DAILY #135 tab 12/21/18 [Last Taken 02/02/19] [id number]/FA/Omega3/Dha/Fish Oil [ Gummies] 2 ea PO DAILY 12/28/18 [Last Taken 02/02/19] Exam - Exam Vital Signs: Vital Signs - Last Taken Temp 36.7 C 02/02/19 19:17 Pulse 90 02/02/19 19:17 Resp 16 02/02/19 19:17 BP 133/79 02/02/19 19:17 Pulse Ox 98 02/02/19 19:17 Constitutional: Present: Alert, Oriented x3, Cooperative, No distress ENT Exam: Present: hearing grossly normal Breasts: Present: Exam deferred Respiratory: Present: lungs clear, no respiratory distress Cardiovascular/Chest: Present: normal peripheral pulses, regular rate, rhythm, no edema Abdomen: Present: soft, nontender, no rebound tenderness, other - gravid /Rectal: Present: Other - cervix - 4/80/-2 Extremity: Present: no pedal edema, no calf tenderness Skin Exam: Present: normal color, warm/dry, no cyanosis Neurologic: Present: alert, normal mood/affect, oriented x 3 Appearance: Present: appropriate appearance, appropriate insight Eye contact: Present: cooperative, good eye contact Thoughts: Present: normal thought pattern Diagnostic Studies: NST reactive Assessment/Plan - Assessment/Plan (1) labor in third trimester Assessment: Patient making cervical change and <36wks so will have to transfer to [facility]. Problem: Acute Qualifiers: labor delivery status: without delivery Qualified Code(s): O60.03 - labor without delivery, third trimester (2) Previous section Problem: Inactive (3) History of pre-eclampsia Problem: Inactive (4) Renal and ureteric calculus Problem: Acute (5) Pancreatic abnormality Problem: Chronic (6) Generalized anxiety disorder Problem: Chronic (7) Attention deficit hyperactivity disorder Problem: Chronic Qualifiers: Attention deficit-hyperactivity disorder type: predominantly inattentive
--- NOTE | 2019-02-02 20:08 | DS ---
Transfer Discharge Summary - Diagnosis(s)/Problems (1) labor in third trimester Problem: Acute (2) Previous section Problem: Inactive (3) History of pre-eclampsia Problem: Inactive (4) Renal and ureteric calculus Problem: Inactive (5) Pancreatic abnormality Problem: Chronic (6) Generalized anxiety disorder Problem: Chronic (7) Attention deficit hyperactivity disorder Problem: Chronic - Course Description of Stay: 28 yo at 35 6/7 wks presented to L&D with complaint of contractions of increased frequency and intensity. Her cervix changed from 2/80/-2 to 3-4/90/-2. She was transferred to [facility] via ambulance for labor. Procedures Performed: see notes below Procedures: NST, and toco monitoring. - Disposition Disposition: Short Term Hospital Inpatient Condition: Stable Discharge Date: 02/02/19 Discharge Time: 20:05
== END 2019-02-02 20:05 | disposition short-term general hospital (02) ==
LOC: OBCLINIC 18:11 → INTOOBSV 19:16 → OB 19:16
PROVIDERS: ADMIT Obstetrics & Gynecology; ATTEND Obstetrics & Gynecology
CPT/HCPCS: 59025

== ENCOUNTER 2019-02-13 23:37 | Inpatient (IN) ==
[2019-02-14] MEDS ORDERED: RINGER'S SOLUTION,LACTATED 1,000 ML IV ONE (00:54)
[2019-02-14] MEDS ORDERED: DEXTROSE 5%-LACTATED RINGERS 1,000 ML IV PRN (00:54)
[2019-02-23] MEDS ORDERED: ceFAZolin SODIUM/DEXTROSE,ISO 2 GM/50 ML BAG IV ONE (15:44)
[2019-02-23] MEDS ORDERED: RINGER'S SOLUTION,LACTATED 1,000 ML IV PRN ×2 (15:44)
[2019-02-23] MEDS ORDERED: OXYTOCIN 20 UNITS in RINGER'S SOLUTION,LACTATED 1,000 ML IV ONE (15:44)
--- NOTE | 2019-02-23 16:03 | ANES ---
Anesthesia Pre Procedure Eval Vitals/Labs: Last Vital Signs Temp 36.3 C 02/13/19 23:56 Pulse 105 H 02/13/19 23:56 Resp 16 02/13/19 23:56 BP 119/84 02/13/19 23:56 Pulse Ox 99 02/13/19 23:56 HOME MEDICATIONS sertraline 100 mg tablet 150 mg PO DAILY #135 tab 12/21/18 [Last Taken 02/22/19] Allergies/Adverse Reactions: Allergies Allergy/AdvReac Type Severity Reaction Status Date / Time Sulfa (Sulfonamide Allergy Severe Hives Verified 02/18/19 09:32 Antibiotics) - Planned Procedure Planned Procedure: Repeat w/ poss abdominal scar revision Medication List Reviewed:: Yes Allergies Verified: Yes Medical History (Last Reviewed 02/23/19 @ 16:01 by Louis Gomes CRNA) History of pre-eclampsia (Inactive) Hyperemesis gravidarum with dehydration (Inactive) Attention deficit hyperactivity disorder (Chronic) Generalized anxiety disorder (Chronic) Gestational diabetes Onset Date: 12/07/18 Kidney stone on left side Onset Date: 12/31/18 Morning sickness ADD (attention deficit disorder) Onset Date: ~2014 Anxiety Onset Date: 04/19/14 Migraine aura, persistent Onset Date: 09/29/12 PCOS (polycystic ovarian syndrome) Onset Date: 09/29/12 Pancreatic divisum Acne Onset Date: Unknown Anemia Onset Date: ~2015 with Biliary tract disorder Onset Date: Unknown Heart murmur Onset Date: ~2014 Major depression (Resolved) Ovarian cyst Onset Date: ~2001 Pancreatic disorder Onset Date: ~2013 Pre-eclampsia Onset Date: 03/22/16 [place] teeth extracted Onset Date: ~2010 Surgical History (Last Reviewed 02/23/19 @ 16:02 by Louis Gomes CRNA) Previous section (Inactive) S/P ureteral stent placement Onset Date: 01/01/19 left Bleeding as complication of pancreatic-biliary sphincterotomy Onset Date: ~05/2017 H/O section Onset Date: 03/22/16 primary - breech position H/O laparoscopy Onset Date: ~2001 pod cleaned out - still has ovaries History of cholecystectomy Onset Date: 11/03/12 Hx of appendectomy Onset Date: ~2001 Family History (Last Reviewed 02/23/19 @ 16:02 by Louis Gomes CRNA) Father Hyperlipemia Grandfather , maternal Alzheimers disease Grandfather , paternal Myocardial infarction Grandmother CVA (cerebral vascular accident) maternal Diabetes Mother Hypertension Sister Asthma PCOS (polycystic ovarian syndrome) Uncle Diabetes type 1 - Family Anesthesia History Family History:: no untoward family reactions to anesthesia, no familial bleeding tendencies, no family history of clotting disorders, no family history of premature - Airway/Neck/Teeth Within Normal Limits:: Yes Teeth Condition: intact Neck Exam: full range of motion Mallampatti Score: 2 Thyromental (T-M) distance: > 6 cm Mandibulo Hyoid distance: > 3 cm - Respiratory Respiratory Physical: lungs clear Smoking Status: Never smoker Sleep Apnea currently treated: No Sleep Apnea by current assessment: No - Cardiovascular Tolerate Activity: Fair Heart Sounds: S1 & S2, Regular - Anesthesia Assessment and Plan ASA Class: PS, II, E Anesthesia Type Plan: Block - Bilateral TAP block for post op pain relief, Spinal
[2019-02-23] MEDS ORDERED: ONDANSETRON HCL/PF 2 MG/ML VIAL ONE (16:07)
[2019-02-23] MEDS ORDERED: DEXAMETHASONE SODIUM PHOSPHATE 10 MG/ML VIAL ONE (16:07)
[2019-02-23] MEDS ORDERED: BUPIVACAINE HCL/EPINEPHRINE 50 ML VIAL ONE (16:08)
[2019-02-23] MEDS ORDERED: KETOROLAC TROMETHAMINE 30 MG/ML VIAL ONE (16:08)
[2019-02-23] MEDS ORDERED: PHENYLEPHRINE HCL 10 MG/ML AMPUL ONE (16:08)
[2019-02-23 16:29] LABS: Cocaine Ur Negative (NEGATIVE); Urine Barbiturate Negative (NEGATIVE); Urine Benzodiazepines Negative (NEGATIVE); Urine Opiates Negative (NEGATIVE); Urine PCP Negative (NEGATIVE); Urine THC Negative (NEGATIVE)
--- NOTE | 2019-02-23 18:07 | OR ---
Operative Report - Dictated Report Narrative: Indication: 28-year-old G3, P1 at 38 6/7 weeks presents to labor and delivery in labor with prior section desiring repeat . status: Planned Pre Operative Diagnosis: 38 6/7-week intrauterine . Prior section. Labor. Post Operative Diagnosis: Same. Procedure: Repeat low transverse section. Abdominal scar revision - 17cm Surgeon: Duy Steele DO Hand Cooper Helper: OR Staff Anesthesia: Spinal, TAP block Estimated Blood Loss: 200 mL Urine Output: 200 mL clear urine Fluids Replacement: 1400 mL of crystalloid Drains: Stack to gravity Surgical Complications: None Specimens: Placenta to freezer Findings: Male born at 1704 on 02/23/2021 with Apgars 8 and 9, weighing 3991 g in cephalic presentation. Normal uterus, tubes, ovaries Technique: The patient was taken to the operating room and placed in dorsal supine position with a left lateral tilt. After adequate spinal anesthesia, stack catheter inserted, SCDs placed, and 2 g of Ancef given preoperatively, the previous scar was excised in an elliptical fashion and the abdominal cavity was entered using sharp and blunt dissection. Two rolled laps were placed in the pericolic gutters on either side of the uterus. A transverse incision was made in the lower uterine segment and extended laterally and upwardly with digital traction. Clear fluid was noted upon amniotomy. The infant was delivered easily. Long umbilical cord was wrapped around body and right hand. The cord was clamped and cut and infant was handed off to awaiting box toe stitcher. The placenta was allowed to deliver spontaneously. The uterus was cleared of clot and debris. Uterine incision was closed with 0 Vicryl using a running stitch. A second imbricating layer was placed. Excellent hemostasis was noted. The rolled laps were removed from the abdominal cavitiy. The peritoneum was closed with a running 3-0 Monocryl. The same suture was used to approximate the rectus and pyramidalis muscles. The fascia was closed with a running 0 Vicryl. The subcutaneous layer was closed with a running 3-0 Monocryl. The same suture was used to approximate the subdermal layer. The skin was closed with a running 4-0 Monocryl and Dermabond. Sponge, lap, needle, and instrument count were correct x 2. Disposition: To post anesthesia care unit in good condition
[2019-02-23] MEDS ORDERED: ONDANSETRON HCL/PF 2 MG/ML VIAL IV PRN (18:09)
[2019-02-23] MEDS ORDERED: SIMETHICONE 80 MG TAB.CHEW PO PRN (18:09)
[2019-02-23] MEDS ORDERED: BISACODYL 10 MG SUPP.RECT RC PRN (18:09)
[2019-02-23] MEDS ORDERED: SENNOSIDES 8.6 MG TABLET PO PRN (18:09)
[2019-02-23] MEDS ORDERED: IBUPROFEN 800 MG TABLET PO PRN (18:09)
--- NOTE | 2019-02-23 18:17 | ANES ---
Post Anesthesia Discharge - Transfer of Care Transfer of Care handoff given to nurse: Yes - Discharge from PACU Discharge from PACU when meets criteria: Yes - Comfortable in PACU.
--- NOTE | 2019-02-23 18:18 | ANES ---
Anesthesia Procedure Note Procedure Note: ANESTHESIA PROCEDURE NOTE Date of Procedure: [02/23/2019 Time of procedure: 1805 p.m. Performed by: SUKHWINDER Nicolas CRNA, MSN Income Tax Consultant: Cari Bautista RN. Preprocedure diagnosis: Post section pain. Post procedure diagnosis: Same. Procedure: Bilateral TAP block Indications: Post section pain relief. Findings: See below. Details of the procedure: The patient was brought to PACU and placed in the supine position. The patient was prepped with chlorhexidine and using ultrasound guidance the 3 abdominal muscular planes were identified and lidocaine 1% was infiltrated to the skin of the intended injection site. Under ultrasound guidance the the internal oblique and transverse this abdominis muscle layers were approached with visualization of a 4 inch block needle until the tip of the needle rested in the plane between the muscles. 25 mL bupivacaine 0.5% with 1-200,000 epinephrine was injected and the procedure was repeated on the other side. Please see radiology/ultrasound report for details and images of the procedure. EBL: 0 Fluids: N/A. Specimen: N/A. Post procedure condition: The patient tolerated the procedure well. No complications were noted. Thank you for this consultation. Louis Gomes CRNA, ARNP, MSN
--- NOTE | 2019-02-23 18:49 | ANES ---
Post Anesthesia Assessment - Vital Signs Vitals: Last Vital Signs Temp 36.8 C 02/23/19 18:30 Pulse 95 02/23/19 18:30 Resp 21 H 02/23/19 18:30 BP 128/64 02/23/19 18:30 Pulse Ox 100 02/23/19 18:30 Airway Patency: Normal - Mental Status Level Of Consciousness: Awake, Alert, Appropriate - Pain Level Pain Score: 0 - N/V Assessment Nausea/Vomiting Presence: None Dehydration:: No
[2019-02-23] MEDS: IBUPROFEN 800 MG TABLET PO PRN (20:55)
[2019-02-23] MEDS: DOCUSATE SODIUM 100 MG CAPSULE PO SCH (20:55)
[2019-02-23] MEDS: oxyCODONE HCL/ACETAMINOPHEN 1 TAB TABLET PO PRN ×2 (20:55→23:57)
[2019-02-24] MEDS: ENOXAPARIN SODIUM 40 MG/0.4 ML SYRG SC SCH (02:41)
[2019-02-24] MEDS: IBUPROFEN 800 MG TABLET PO PRN ×3 (03:08→16:00)
[2019-02-24] MEDS: oxyCODONE HCL/ACETAMINOPHEN 1 TAB TABLET PO PRN ×6 (03:09→19:05)
--- NOTE | 2019-02-24 05:21 | PN ---
Subjective - Date and Time Seen Date: 02/24/19 Time: 05:19 Objective - Vitals Vitals: Last Vital Signs Temp 35.7 C L 02/24/19 03:20 Pulse 74 02/24/19 03:20 Resp 18 02/24/19 03:20 BP 151/85 H 02/24/19 03:20 Pulse Ox 100 02/24/19 03:20 Patient denies complaints. Tolerating regular diet. Ambulating without difficulty. Pain well controlled. Lochia wnl. Abdomen - soft, appropriately tender Incision -clean, dry, intact uterus - firm, at umbilicus -1 no calf tenderness Impression: Post op day #1 s/p repeat section. Abdominal scar revision Plan: Continue routine post-operative/ care Cauti Physician Documentation - Urinary Catheter Management Urethral (Daily) Date of Insertion: 02/23/19 Time of Insertion: 16:45 History for MU History for MU Definition: * The number of deliveries resulting in a live the patient experienced prior to current hospitalization * The previous delivery of live twins or any live multiple gestation is considered one live event. *If primagravida or nulliparous is documented select zero for the number of previous live births. Live Events: Live Events: 1
[2019-02-24] MEDS ORDERED: SERTRALINE HCL 100 MG TABLET PO SCH (09:00)
[2019-02-24] MEDS: DOCUSATE SODIUM 100 MG CAPSULE PO SCH ×2 (09:30→20:31)
[2019-02-25] MEDS: IBUPROFEN 800 MG TABLET PO PRN ×4 (00:57→21:24)
[2019-02-25] MEDS: oxyCODONE HCL/ACETAMINOPHEN 1 TAB TABLET PO PRN ×3 (00:57→09:11)
[2019-02-25] MEDS: ENOXAPARIN SODIUM 40 MG/0.4 ML SYRG SC SCH (02:45)
[2019-02-25] MEDS: SERTRALINE HCL 50 MG TABLET PO SCH (09:10)
[2019-02-25] MEDS: DOCUSATE SODIUM 100 MG CAPSULE PO SCH ×2 (09:10→21:21)
--- NOTE | 2019-02-25 09:12 | PN ---
Subjective - Date and Time Seen Date: 02/25/19 Time: 09:12 Objective - Vitals Vitals: Last Vital Signs Temp 36.2 C 02/25/19 07:36 Pulse 88 02/25/19 07:36 Resp 18 02/25/19 07:36 BP 112/69 02/25/19 07:36 Pulse Ox 99 02/25/19 07:36 Patient denies complaints. Ambulating well. Tolerating regular diet. Pain well controlled. Lochia wnl. Abdomen - soft, appropriately tender Incision -clean, dry, intact uterus - firm, at umbilicus -2 no calf tenderness Impression: Post op day #2 s/p repeat section. Abdominal scar revision Plan: Continue routine post-operative/ care Cauti Physician Documentation - Urinary Catheter Management Urethral (Daily) Date of Insertion: 02/23/19 Time of Insertion: 16:45
[2019-02-26] MEDS: ENOXAPARIN SODIUM 40 MG/0.4 ML SYRG SC SCH (04:17)
[2019-02-26] MEDS: IBUPROFEN 800 MG TABLET PO PRN (05:03)
[2019-02-26 09:21] VITALS: BP 120/83
[2019-02-26] MEDS: DOCUSATE SODIUM 100 MG CAPSULE PO SCH (09:51)
[2019-02-26] MEDS: SERTRALINE HCL 50 MG TABLET PO SCH (09:51)
--- NOTE | 2019-02-26 12:43 | PN ---
Subjective - Date and Time Seen Date: 02/26/19 Time: 12:43 Objective - Vitals Vitals: Last Vital Signs Temp 36.1 C 02/26/19 09:19 Pulse 89 02/26/19 09:19 Resp 16 02/26/19 09:19 BP 120/83 02/26/19 09:19 Pulse Ox 100 02/26/19 09:19 Patient denies complaints. Ambulating without difficulty. Tolerating regular diet. Pain well controlled. Lochia wnl. Abdomen - soft, appropriately tender Incision -clean, dry, intact uterus - firm, at umbilicus -3 no calf tenderness Impression: Post op day #3 s/p repeat section. Abdominal scar revision Plan: Routine discharge instructions Cauti Physician Documentation - Urinary Catheter Management Urethral (Daily) Date of Insertion: 02/23/19 Time of Insertion: 16:45
== END 2019-02-26 12:45 | disposition home or self-care (01) | DRG 787 ==
LOC: OB 23:37
PROVIDERS: ADMIT Obstetrics & Gynecology; ATTEND Obstetrics & Gynecology
CPT/HCPCS: 59025; 80307; J2405